=== PATIENT | female | born 2005 | race Caucasian/White ===

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

== ENCOUNTER 2024-03-08 17:20 | Outpatient (CLI) | payer MEDICAID, BC, SELFPAY ==
[2024-03-08 17:42] VITALS: BP 111/70; PULSE 111; PULSE 118; O2SAT 99
[2024-03-08 17:43] VITALS: BMI 22.6
[2024-03-08 18:13] VITALS: TEMP 37.1; O2SAT 98
[2024-03-08 18:14] VITALS: PULSE 106; O2SAT 98
[2024-03-08 18:26] LABS: ROM Internal Control Test YES-OK TO RESULT pt. (Internal QC); ROM Patient Test Negative (Negative); Record Kit Lot#, ROM+ K1972
--- NOTE | 2024-03-08 18:40 | OB.TRI.NOTE ---
HPI - General General Date of Admission: 03/08/24 Date of Service: 03/08/24 Chief Complaint: contractions HPI Narrative NATALEE LUU, is a 18 F who presents 4-5 contractions per hour. Possible LOF. Has been seen at [facility] for possible LOF. No vb. Good FM. Sees [facility] for care. [facility] Medical History Stomach ulcer Depression Anxiety Home Medications ?Medication ?Instructions ?Recorded ?Last Taken ?Type docosahexaenoic acid 200 mg 1 mg PO DAILY 09/05/23 Unknown History capsule ( DHA) ondansetron 4 mg disintegrating 4 mg PO Q8H PRN nausea and vomiting 03/08/24 Unknown History tablet trazodone 50 mg tablet 50 mg PO QHS 03/08/24 03/07/24 History Allergy/AdvReac Type Severity Reaction Status Date / Time amoxicillin Allergy Severe hives Verified 03/08/24 17:44 ketorolac (From Toradol) AdvReac Other Verified 03/08/24 17:44 tramadol AdvReac Other Verified 03/08/24 17:44 NST FHR Rate Baby A Baseline: 140 Variability:: Moderate Accelerations:: 15 x 15 Decelerations:: None NST Reactive:: Yes FHR Category:: Category I Uterine Activity:: irregular Assessment & Plan (1) 37 weeks gestation of : (2) Uterine contractions: PLAN: Cvx 1/50/-2 per RN. Pt comfortable appearing and irregular ctx's. Category 1 tracing. Labor precautions reviewed. care at [facility]. D/c home after offering cervical re check.
== END 2024-03-08 18:45 | disposition home or self-care (01) ==
LOC: WPOUT 17:34 → WP 17:34
PROVIDERS: PCP Family Medicine; Referring Provider Obstetrics & Gynecology; Visit Provider Obstetrics & Gynecology
DX: O47.1 False labor at or after 37 completed weeks of gestation (principal); Z3A.37 37 weeks gestation of pregnancy
CPT/HCPCS: 59025; 59050; 84112; 99221; G0378

== ENCOUNTER 2024-03-10 20:18 | Outpatient (CLI) | payer MEDICAID, BC, SELFPAY ==
[2024-03-10 20:30] VITALS: BMI 22.4
[2024-03-10 20:42] VITALS: RESP 17; TEMP 36.2
[2024-03-10 20:49] VITALS: BP 111/74; PULSE 112; PULSE 94; O2SAT 99
[2024-03-10 21:40] LABS: Color, Urine Yellow (Yellow); Glucose, Dipstick Normal (Normal); Ketone-Dipstick 15 mg/dl (Negative); Leukocyte Esterase-Dipstick 25 /ul (Negative); Nitrite-Dipstick Negative (Negative); Occult Blood-Urine 10 /ul (Negative); Protein-Dipstick Negative (Negative); Specific Gravity, Urine 1.005 (1.002-1.030); Urine Bilirubin Dipstick Negative (Negative); Urine Clarity Sl. Cloudy (Clear); Urine Urobilinogen Normal (Normal)
[2024-03-10] MEDS: Lactated Ringers 1,000 ML 999 ML IV (21:52)
--- NOTE | 2024-03-11 06:56 | OB.TRI.HP_ITS ---
HPI - General HPI Narrative NATALEE LUU, is a 18 F at 37 weeks gestation who presents to triage with contractions. Patient receives care in [place]. [facility] Medical History Stomach ulcer Depression Anxiety Home Medications ?Medication ?Instructions ?Recorded ?Last Taken ?Type docosahexaenoic acid 200 mg 1 mg PO DAILY 09/05/23 Unknown History capsule ( DHA) ondansetron 4 mg disintegrating 4 mg PO Q8H PRN nausea and vomiting 03/08/24 Unknown History tablet trazodone 50 mg tablet 50 mg PO QHS 03/08/24 03/09/24 20:00 History Allergy/AdvReac Type Severity Reaction Status Date / Time amoxicillin Allergy Severe hives Verified 03/10/24 20:40 ketorolac (From Toradol) AdvReac Other Verified 03/10/24 20:40 tramadol AdvReac Other Verified 03/10/24 20:40 ROS Eyes Eyes: Denies blurry vision Cardiovascular Cardiovascular: Reports none; Denies chest pain at rest, chest pain with activity or dizziness Respiratory/Chest Respiratory/Chest: Denies cough or dyspnea Gastrointestinal Gastrointestinal: Reports none and other; Denies diarrhea or vomiting Genitourinary Genitourinary: Denies dysuria Musculoskeletal Musculoskeletal: Reports none Integumentary Integumentary: Reports none; Denies rash Neurologic Neurologic: Denies dizziness, headache(s) or other visual disturbances Psychiatric Psychiatric: Reports none Physical Exam Const alert and no apparent distress General Appearance: cooperative Orientation / Consciousness: awake Exam Limitations: no limitations HEENT normocephalic Eyes General Eye: normal appearance of both eyes Neck full ROM Chest inspection of chest normal Resp normal respiratory effort and normal air movement Effort and Inspection: symmetric chest movement Auscultation: clear to auscultation bilaterally Cardio regular rate GI soft to palpation, non-tender and non-distended Inspection: and other Back/Spine normal ROM Extremity full ROM, normal capillary refill and no calf tenderness Skin no rashes or lesions noted Neuro oriented x3 and CN's II-XII intact bilaterally Psych mental status grossly normal NST FHR Rate Baby A Baseline: 140 Variability:: Moderate Accelerations:: 15 x 15 Decelerations:: None NST Reactive:: Yes FHR Category:: Category I Uterine Activity:: Irregular Assessment & Plan (1) Uterine contractions: (2) 37 weeks gestation of : PLAN: Plan CE 1.5cm/50/-3- unchanged after extended monitoring IV- Give LR 1000 cc bolus UA- sent D/C home with follow up in office Dr. Kathleen involved with plan of care
== END 2024-03-10 23:17 | disposition home or self-care (01) ==
LOC: WPOUT 20:27 → WP 20:28
PROVIDERS: Advanced Practice Midwife; PCP Family Medicine; Referring Provider Obstetrics & Gynecology; Visit Provider Obstetrics & Gynecology
DX: O47.1 False labor at or after 37 completed weeks of gestation (principal); Z3A.37 37 weeks gestation of pregnancy
CPT/HCPCS: 96360; J7120; 59025; 59050; 81002; 99221; G0378